=== PATIENT | male | born 1985 | race Two or more races ===

== ENCOUNTER 2019-02-11 20:15 | Inpatient (IN) | payer SELFPAY ==
[~2019-02-11] VITALS: Ht 188 cm; Wt 104.7 kg
[2019-02-11] MEDS ORDERED: MORPHINE SULFATE 4 MG/ML SYR/VIAL IV ONE (22:00)
[2019-02-11] MEDS ORDERED: ONDANSETRON HCL 4 MG/2 ML VIAL IV ONE (22:00)
[2019-02-12] MEDS ORDERED: ACETAMINOPHEN 325 MG TAB PO PRN (02:30)
[2019-02-12] MEDS ORDERED: TEMAZEPAM 15 MG CAP PO PRN (02:30)
[2019-02-12] MEDS ORDERED: HYDROcodone-ACET 5/325MG TAB PO PRN (02:30)
[2019-02-12 02:47] LABS: Basophils # (auto) 0.1 uL; Basophils % (auto) 0.7 % (0.0-2.0); Eosinophils # (auto) 0.1 uL; Eosinophils % (auto) 0.9 % (0.0-7.0); Hemoglobin 15.2 g/dL (13.5-17.5); Lymphocytes # (auto) 2.6 uL; Lymphocytes % (auto) 23.2 % (10.0-50.0); Mean Corpuscular Hemoglobin 28.6 pg (28.0-32.0); Mean Corpuscular Hgb Conc. 34.6 g/dL (32.0-36.0); Mean Corpuscular Volume 82.9 fL (80.0-100.0); Monocytes # (auto) 0.9 uL; Monocytes % (auto) 7.6 % (0.0-12.0); Neutrophils # (auto) 7.7 uL; Neutrophils % (auto) 67.6 % (37.0-80.0); Platelet Count (auto) 272 10^3/uL (140-450); Red Blood Cells 5.31 10^6/uL (4.5-5.90); Red Cell Distribution Width 13.3 % (11.8-14.3); White Blood Cell 11.4 10^3/uL (4.4-10.8)
[2019-02-12 03:04] LABS: INR 0.95 (0.9-1.15); Partial Thromboplastin Time 27.5 sec (23.78-33.04); Prothrombin Time 10.2 sec (9.27-12.13)
[2019-02-12 03:05] LABS: Albumin 3.7 g/dL (3.4-5.0); BUN/Creatinine Ratio 18.1; Calcium 8.7 mg/dL (8.5-10.1); Potassium 3.5 mmol/L (3.5-5.1)
[2019-02-12 03:08] LABS: Bilirubin, Total 0.6 mg/dL (0.2-1.0); Total Protein 7.4 g/dL (6.4-8.2)
[2019-02-12 03:35] VITALS: BP 135/41
--- NOTE | 2019-02-12 03:35 | NUR ---
MS admit from ER JANAECAROLINE admitted to tele/MS . Patient oriented to CLAUDIA MOBLEY, RN primary RN, unit, room, bed, and unit policies regarding patient care and visiting hours. Patient weighed by bedscale and encouraged to call if they need something. All questions and concerns addressed, patient verbalized understanding. Wound pictures taken, Patient refused to wear brace for leg at this time,stated it is to painful, explained purpose. Patient report pain level 10/10 will medicate per MD order. bed locked and in lowest position, call light within reach. will continue to monitor pt. Note:
[2019-02-12] MEDS: MORPHINE SULFATE 4 MG/ML SYR/VIAL IV PRN ×4 (04:16→20:33)
[2019-02-12] MEDS: ONDANSETRON HCL 4 MG/2 ML VIAL IV PRN ×3 (04:16→16:24)
[2019-02-12 05:00] VITALS: BP 135/64
--- NOTE | 2019-02-12 07:45 | NUR ---
OPENING SHIFT PATIENT AWAKE AND ALERT, ORIENTED X4. PATIENT C/O OF 10/10 RIGHT LEG/ARM PAIN. WILL MEDICATE PER EMAR/ M.D. ORDERS. IS AT BEDSIDE. RESPIRATIONS EVEN AND UNLABORED. BED IS IN LOWEST POSITION, SIDE RAILS UP X2, AND CALL LIGHT WITHIN REACH. WILL CONTINUE TO MONITOR Q1 HOUR AND PRN.
[2019-02-12 08:39] VITALS: BP 108/51
[2019-02-12] MEDS: ENOXAPARIN SOD 40 MG/0.4 ML SYRINGE SC SCH (09:04)
[2019-02-12] MEDS: FAMOTIDINE 20 MG TAB PO SCH ×2 (09:04→22:09)
--- NOTE | 2019-02-12 12:29 | NUR ---
DR. LAURENT NOT AVAILABLE MGe. NOT AVAILABLE FOR ORTHO CONSULT. SPOKE TO Gume IN PERSON. M.D. STATES HE IS UNAVAILABLE. DR. PETERSON WILL BE CONSULTED [facility] EXPERIMENTAL ROSHAN INFORMED OF CHANGES AND TO CALL IN ORTHO CONSULT
[2019-02-12 12:57] VITALS: BP 111/62
--- NOTE | 2019-02-12 14:00 | NUR ---
DR. SILVERIO PER DR. BOLTON SURGICAL M.Yusuf. UNABLE TO PERFORM SURGERY. [facility] RECOMMENDED WILL DISCUSS WITH PATIENT AND FAMILY
--- NOTE | 2019-02-12 14:30 | NUR ---
FAMILY AND PATIENT UPSET PATIENT AND FAMILY INFORMED DR. SILVERIO IS UNABLE TO PERFORM SURGICAL INTERVENTION FOR PATIENT [facility] PATIENT AND FAMILY WANT TO BE TRANSFERRED RIGHT AWAY. TRANSFER PROCESS EXPLAINED TO PATIENT AND FAMILY. PATIENT AND FAMILY STATING THEY MAY LEAVE AND GO TO ANOTHER HOSPITAL AMA INFORMATION PROVIDED TO PATIENT AND FAMILY
--- NOTE | 2019-02-12 15:40 | NUR ---
assessment Per consult patient wants information on advanced directive. Patient has been provided with Azeri advanced directive. Addendum: 02/12/19 at 1541 by Renata Booth Amended: Links added.
--- NOTE | 2019-02-12 15:55 | NUR ---
CLINICALS FAXED TO THE FOLLOWING HOSPITALS FOR TRANSFER TO HIGHER LEVEL OF CARE---[facility], [facility], [facility], [facility], AND [facility]
--- NOTE | 2019-02-12 16:00 | NUR ---
FAMILY CALLS 911 PEDIATRIC PHYSICIAN ASSISTANT CALLED IRON MOLDER HELPER AND INFORMED STAFF THAT 911 HAD BEEN CALLED BY FAMILY TO TRANSFER PATIENT. PEDIATRIC PHYSICIAN ASSISTANT EXPLAINED THEY DO NOT [employer] FROM HOSPITAL TO TRANSFER TO ANOTHER HOSPITAL. FAMILY AND PATIENT EDUCATED ON TRANSFER PROCESS WITH CHARGE AWA Lane, AT BEDSIDE. IT WAS EXPLAINED TO FAMILY THAT FREQUENCY CHECKER WILL NEED TO SET UP A CASE TO HANDLE THE TRANSFER. BEING THAT IT IS FRIDAY LATE AFTERNOON, IT WAS EXPLAINED TO PATIENT AND FAMILY A CASE MAY NOT BE SUCCESSFULLY CREATED UNTIL Friday. PAIN MANAGEMENT AND COMFORT WILL BE POC UNTIL FURTHER NOTICE. FAMILY AND PATIENT VERBALIZED UNDERSTANDING.
--- NOTE | 2019-02-12 16:26 | NUR ---
PATIENT MEDICATED FOR PAIN PATIENT MEDICATED FOR 8/10 PAIN PER EMALopez Dodson.Josesito ORDERS
[2019-02-12 16:40] VITALS: BP 117/69
--- NOTE | 2019-02-12 17:24 | NUR ---
PATIENT ASLEEP PATIENT ASLEEP. NO S/S OF DISTRESS, SOB, OR PAIN. RESPIRATIONS EVEN AND UNLABORED. WILL CONTINUE TO MONITOR Q1 HOUR AND PRN.
--- NOTE | 2019-02-12 17:57 | NUR ---
[facility] CALLED RANDY FROM [facility] CALLED AND REQUESTED PATIENT DIAGNOSIS. RANDY STATED THEY RECEIVED REQUEST FOR TRANSFER AND ARE WORKING ON THE CASE NOW. THEY WILL BE IN CONTACT ONCE A BED BECOMES AVAILABLE. CONTACT INFO TO [facility] AND EXT TO PEDRO NINO PROVIDED
--- NOTE | 2019-02-12 18:38 | NUR ---
IMAGING TRANSFER REQUEST SUBMITTED REQUEST FOR IMAGES Nohemy.
--- NOTE | 2019-02-12 18:47 | NUR ---
END OF SHIFT PATIENT ASLEEP IN BED. NO S/S OF DISTRESS, SOB, OR PAIN. RESPIRATIONS EVEN AND UNLABORED. BED IS IN LOWEST POSITION, SIDE RAILS UP X2, AND CALL LIGHT WITHIN REACH. WILL ENDORSE ARE TO BENEFITS CLERK R.N.
[2019-02-12 22:00] VITALS: BP 118/67
[2019-02-13] MEDS: MORPHINE SULFATE 4 MG/ML SYR/VIAL IV PRN ×5 (05:17→22:35)
[2019-02-13 05:36] VITALS: BP 105/69
--- NOTE | 2019-02-13 07:39 | NUR ---
OPENING SHIFT PATIENT AWAKE AND ALERT, ORIENTED X4. PATIENT C/O OF 7/10 RIGHT LEG/ARM PAIN. WILL MEDICATE PER EMAR/ M.D. ORDERS. IS AT BEDSIDE. RESPIRATIONS EVEN AND UNLABORED. BED IS IN LOWEST POSITION, SIDE RAILS UP X2, AND CALL LIGHT WITHIN REACH. DISCUSSED POC WITH PATIENT AND FAMILY. PATIENT AND FAMILY VERBALIZED UNDERSTANDING. WILL CONTINUE TO MONITOR Q1 HOUR AND PRN.
[2019-02-13 09:06] VITALS: BP 104/58
[2019-02-13] MEDS: ONDANSETRON HCL 4 MG/2 ML VIAL IV PRN ×3 (09:23→17:30)
--- NOTE | 2019-02-13 11:43 | NUR ---
DR. GRANGER AT BEDSIDE EXPLAINED TO AND PATIENT POC PATIENT AND VERBALIZED UNDERSTANDING Bertram WANTS LONG LEG BRACE ON PATIENT PATIENT PREVIOUSLY REFUSED Bertram EXPLAINED PURPOSE AND RISK FACTORS OR REFUSAL PATIENT AND VERBALIZED UNDERSTANDING
--- NOTE | 2019-02-13 11:45 | NUR ---
CALLED Clare SPOKE TO SILVANO. EXPLAINED DR. Trish GRANGER WOULD LIKE LONG LEG CURAD BRACE PLACED ON PATIENT . SILVANO SAID SHE WOULD SEND Clrae MEYERS TO ASSIST IN PLACING BRACE ON PATIENT
--- NOTE | 2019-02-13 11:48 | NUR ---
CALLED TRUCK DRIVER RUBBISH COLLECTOR SPOKE TO RACHELLE. ASKED FOR UPDATE ON PATIENT TRANSFER PER M.D. DR. Trish BUSH STATED SHE WOULD CONTACT [facility] AND FIND OUT STATUS OF TRANSFER WILL AWAIT CALL BACK
--- NOTE | 2019-02-13 12:10 | NUR ---
RACHELLE FROM [facility] CALLED TO INFORM THAT [facility] HAS NOT YET FOUND AN ACCEPTING DOCTOR FOR PATIENT PATIENT AND FAMILY INFORMED PATIENT AND FAMILY UPSET. PATIENT THREATENING TO LEAVE. ALL OPTIONS EXPLAINED TO PATIENT. PATIENT'S STATE'S " WE WILL CALL SOME PEOPLE AND LET YOU KNOW WHAT WE DECIDE. "
[2019-02-13 13:00] VITALS: BP 123/70
[2019-02-13] MEDS: ENOXAPARIN SOD 40 MG/0.4 ML SYRINGE SC SCH (13:12)
[2019-02-13] MEDS: FAMOTIDINE 20 MG TAB PO SCH ×2 (13:12→22:00)
--- NOTE | 2019-02-13 13:27 | NUR ---
RIGHT LEG BRACE PLACED BY E.RPaz BULL AND TWO STAFF MEMBERS PATIENT MEDICATED FOR PAIN FOR PROCEDURE INSTRUCTIONS TO KEEP DRY GIVEN LEG IS ELEVATED ON PILLOWS TO IMPROVE CIRCULATION AND PROVIDE COMFORT PER TECH. PATIENT SHOWS NO S/S OF DISTRESS, OR SOB.
[2019-02-13 17:00] VITALS: BP 109/67
--- NOTE | 2019-02-13 18:37 | NUR ---
END OF SHIFT PATIENT ASLEEP IN BED. AT BEDSIDE. BRACE TO RIGHT LEG IS ON AND SECURE. NO S/S OF DISTRESS, SOB, OR PAIN. RESPIRATIONS EVEN AND UNLABORED. BED IS IN LOWEST POSITION, SIDE RAILS UP X2, AND CALL LIGHT WITHIN REACH. WILL ENDORSE ARE TO COMMUNITY PROGRAM ASSISTANT R.N.
--- NOTE | 2019-02-13 20:00 | NUR ---
OPENING SHIFT NOTE: PATIENT WAS RESTING BED WITH FAMILY BEDSIDE. SPOKE TO FAMILY AND UPDATED THEM ON THE TRANSFER SITUATION TO [place]. THEY UNDERSTAND AND WILL WAIT FOR THE TIME BEING. VERBALIZED UNDERSTANDING TO USE CALL LIGHT IF ASSISTANCE IS NEEDED. WILL CONTINUE TO MONITOR.
[2019-02-13 21:58] VITALS: BP 115/68
[2019-02-14 05:12] VITALS: BP 122/69
--- NOTE | 2019-02-14 07:42 | NUR ---
OPENING SHIFT PATIENT AWAKE AND ALERT, ORIENTED X4. PATIENT C/O OF 7/10 RIGHT LEG/ARM PAIN. WILL MEDICATE PER EMAR/ M.D ORDERS. BRACE TO LEFT LEG CLEAN AND INTACT. IS AT BEDSIDE. RESPIRATIONS EVEN AND UNLABORED. BED IS IN LOWEST POSITION, SIDE RAILS UP X2, AND CALL LIGHT WITHIN REACH. DISCUSSED POC WITH PATIENT AND FAMILY. PATIENT AND FAMILY VERBALIZED UNDERSTANDING. WILL CONTINUE TO MONITOR Q1 HOUR AND PRN.
[2019-02-14] MEDS: ONDANSETRON HCL 4 MG/2 ML VIAL IV PRN ×3 (07:49→15:49)
[2019-02-14] MEDS: MORPHINE SULFATE 4 MG/ML SYR/VIAL IV PRN ×4 (07:49→20:09)
[2019-02-14 09:00] VITALS: BP 122/69
--- NOTE | 2019-02-14 09:11 | NUR ---
INCREASE FLUID EDUCATION ENCOURAGED PATIENT TO INCREASE FLUIDS. PATIENT HAS NOT HAD A BM IN 3 DAYS. EDUCATED PATIENT ON MORPHINE SIDE EFFECTS AND INABILITY TO AMBULATE PER USUAL. PATIENT VERBALIZED UNDERSTANDING
[2019-02-14] MEDS: ENOXAPARIN SOD 40 MG/0.4 ML SYRINGE SC SCH (10:45)
[2019-02-14] MEDS: FAMOTIDINE 20 MG TAB PO SCH ×2 (10:45→21:57)
--- NOTE | 2019-02-14 11:15 | NUR ---
DR. Trish GRANGER M.D. AT BEDSIDE DISCUSSING POC WITH PATIENT. PATIENT VERBALIZED UNDERSTANDING
[2019-02-14 13:00] VITALS: BP 110/68
[2019-02-14 17:00] VITALS: BP 126/76
--- NOTE | 2019-02-14 18:36 | NUR ---
END OF SHIFT PATIENT RESTING IN BED. NO S/S OF DISTRESS, SOB, OR PAIN. RESPIRATIONS EVEN AND UNLABORED. BED IS IN LOWEST POSITION, SIDE RAILS UP X2, AND CALL LIGHT WITHIN REACH. WILL ENDORSE ARE TO FOLLOW UP SPECIALIST R.N.
[2019-02-14 21:30] VITALS: BP 122/60
[2019-02-15] MEDS: MORPHINE SULFATE 4 MG/ML SYR/VIAL IV PRN ×4 (03:55→22:56)
[2019-02-15 04:38] VITALS: BP_SYST 115; BP_SYST 146; BP_DIAS 69
--- NOTE | 2019-02-15 07:30 | NUR ---
Opening Shift Note Assumed care of patient, awake and alert, lying on bed. No S/S of distress/SOB or pain. Call light within reach, 2 side rails up and bed in lowest position. Instructed on POC and to call for assist PRN, will continue to monitor for changes Q1hr and PRN.
[2019-02-15 08:00] VITALS: BP 113/71
[2019-02-15] MEDS: ENOXAPARIN SOD 40 MG/0.4 ML SYRINGE SC SCH (10:03)
[2019-02-15] MEDS: ONDANSETRON HCL 4 MG/2 ML VIAL IV PRN ×3 (10:04→22:56)
[2019-02-15] MEDS: FAMOTIDINE 20 MG TAB PO SCH ×2 (10:04→22:50)
[2019-02-15] MEDS ORDERED: HYDROcodone-ACET 5/325MG TAB PO PRN (10:45)
--- NOTE | 2019-02-15 11:01 | NUR ---
ORTHO CONSULT FAXED TO [facility] AND DR SILVERIO'S PHONE NUMBER PROVIDED TO THEM.
[2019-02-15 12:00] VITALS: BP 118/72
--- NOTE | 2019-02-15 16:15 | NUR ---
PHONE CALL TO [facility] IN [place] ABOUT TRANSFER. THEY ARE STILL TRYING TO FIND AN ACCEPTING PHYSICIAN. THEY WILL CALL BACK WITH UPDATE. ALL OTHER HOSPITALS THAT WERE FAXED TO HAVE DECLINED PATIENT.
[2019-02-15 16:48] VITALS: BP 113/59
--- NOTE | 2019-02-15 19:50 | NUR ---
OPENING SHIFT NOTE RECEIVED REPORT FROM DAYSHIFT RN. PATIENT RESTING COMFORTABLY IN BED WITH EYES CLOSED. NO S/S OF DISTRESS OR SOB. NO PAIN NOTED OR REPORTED AT THIS TIME. PATIENT A/O X4. PATIENT HAS LONG LEG BRACE APPLIED TO RIGHT LEG, PULSES STRONG AND CAP REFILL <3 SECONDS. UPDATED PATIENT ON POC, VERBALIZED UNDERSTANDING. BED LOCKED IN LOW POSITION, CALL LIGHT WITHIN REACH. WILL CONTINUE TO MONITOR PATIENT Q1HR AND PRN.
[2019-02-15 22:00] VITALS: BP 113/64
[2019-02-16] MEDS: MORPHINE SULFATE 4 MG/ML SYR/VIAL IV PRN ×3 (03:33→14:00)
[2019-02-16 05:08] VITALS: BP 112/70
[2019-02-16 08:15] VITALS: BP 115/63
[2019-02-16] MEDS: ENOXAPARIN SOD 40 MG/0.4 ML SYRINGE SC SCH (09:24)
[2019-02-16] MEDS: ONDANSETRON HCL 4 MG/2 ML VIAL IV PRN (09:24)
[2019-02-16] MEDS: FAMOTIDINE 20 MG TAB PO SCH (09:24)
[2019-02-16 12:52] VITALS: BP 120/70
--- NOTE | 2019-02-16 12:59 | NUR ---
RE FAXED ORDER AND CLINICALS TO [facility]. AWAITING CALL BACK. SPOKE WITH [facility], THEY WILL FAX FINANCIAL LIABILITY.
--- NOTE | 2019-02-16 13:56 | NUR ---
FINANCIAL AGREEMENT FAXED BACK TO [facility]
--- NOTE | 2019-02-16 14:00 | NUR ---
PAIN PT COMPLAINING OF PAIN IN HIS RIGHT LEG 07/03, PAIN MEDICATION GIVEN ORDERED.
--- NOTE | 2019-02-16 14:14 | NUR ---
PT AND GIRLFRIEND DECIDED TO LEAVE THE HOSPITAL AGAINST MEDICAL ADVICE. PT AND GIRLFRIEND UNABLE TO WAIT FOR THE TRANSFER. PT MADE AWARE OF THE RISK AND BENEFIT OF LEAVING THE HOSPITAL AGAINST MEDICAL ADVICE. PT VERBALIZED UNDERSTANDING.
--- NOTE | 2019-02-16 14:26 | NUR ---
[facility] VOUCHER SIGNED BY ADMINISTRATION AND FAXED BACK TO [facility]. WHEN PATIENT IS READY TO TRANSFER CALL [facility] AT [phone] AND PROVIDE INFORMATION FOR TRANSFER.
--- NOTE | 2019-02-16 15:00 | NUR ---
AMA Note CAROLINE GALLEGOS states they want to leave the hospital Against Medical Advice (AMA). Patient encouraged to stay for further treatment/stabilization. CHRISTIANO BOLTON MD notified of patient's wishes. Patient advised of the risks and benefits of leaving AMA. Patient verbalized understanding. Patient encouraged to return to the ER if symptoms do not improve or worsen.
== END 2019-02-16 15:00 | disposition left against medical advice (07) | DRG 563 ==
LOC: ER 20:17 → OVERFLOW 02-12 02:27 → WEST WING 02-12 03:35
PROVIDERS: ADMIT Nurse Practitioner; ATTEND Internal Medicine
DX: S82.191A Other fracture of upper end of right tibia, initial encounter for closed fracture (principal); Z53.21 Procedure and treatment not carried out due to patient leaving prior to being seen by health care provider; Y93.I9 Activity, other involving external motion; Y92.89 Other specified places as the place of occurrence of the external cause; Y99.8 Other external cause status; V29.88XA Motorcycle rider (driver) (passenger) injured in other specified transport accidents, initial encounter
CPT/HCPCS: 36415; 71045; 73700; 80053; 85025; 85610; 85730; 96374; 96375; G0378; J2405